=== PATIENT | male | born 1985 | race Caucasian/White ===

== ENCOUNTER 2019-10-17 17:44 | Emergency (ER) | payer BC ==
[2019-10-17 18:30] VITALS: BP 138/95; PULSE 90; RESP 18; TEMP 98.4
[2019-10-17] MEDS ORDERED: KETOROLAC 60 MG/2 ML VIAL IM STA (19:10)
[2019-10-17] MEDS ORDERED: DIAZEPAM 5 MG TAB PO STA (19:11)
--- NOTE | 2019-10-17 19:28 | ED ---
Back Pain HPI - General Chief Complaint: Back Pain/Injury Stated Complaint: Back pain Time Seen by Provider: 10/17/19 18:48 Source: patient Limitations: no limitations - History of Present Illness Initial Comments: Patient is a 34-year-old male presenting to emergency Department with complaints of low back pain 4 days. Patient states he was sitting cross leg is working on a vehicle for most of the day on Monday and then started having lower back pain. Patient states he does normally have low back pain intermittently but states this has not been getting better. Patient states today while he was standing he had an episode of pain shooting down both of his legs. He denies any saddle paresthesias, bowel or bladder incontinence. He denies fever, chills. He denies any previous fractures or surgery his low back. Patient is ambulatory. There are no other complaints at this time. Upon arrival to the ER, his vital signs are stable. - Related Data Previous Rx's Medication Instructions Recorded Cyclobenzaprine [Flexeril] 5 mg PO BID PRN #10 tablet 10/17/19 Allergies Allergy/AdvReac Type Severity Reaction Status Date / Time No Known Allergies Allergy Verified 10/17/19 18:25 Review of Systems ROS Statement: Those systems with pertinent positive or pertinent negative responses have been documented in the HPI. ROS Other: All systems not noted in ROS Statement are negative. Past Medical History Past Medical History: Asthma History of Any Multi-Drug Resistant Organisms: None Reported Past Surgical History: No Surgical Hx Reported Past Psychological History: No Psychological Hx Reported Smoking Status: Never smoker Past Alcohol Use History: None Reported Past Drug Use History: None Reported General Exam - General Exam Comments Initial Comments: GENERAL: Well-appearing, well-nourished and in no acute distress. Appears uncomfortable while standing. HEAD: Atraumatic, normocephalic. EYES: Pupils equal round and reactive to light, extraocular movements intact, sclera anicteric, conjunctiva are normal. ENT: TMs normal, nares patent, oropharynx clear without exudates. Moist mucous mem branes. NECK: Normal range of motion, supple without lymphadenopathy or JVD. LUNGS: Breath sounds clear to auscultation bilaterally and equal. No wheezes rales or rhonchi. HEART: Regular rate and rhythm without murmurs, rubs or gallops. ABDOMEN: Soft, nontender, normoactive bowel sounds. No guarding, no rebound. No masses appreciated. : Deferred EXTREMITIES: Patient is able to ambulate. Pain with palpation of lumbar paraspinals, bilaterally. Complete muscle spasms on the left greater than right. Patient has pain with trunk flexion. Normal trunk extension. Patient has equal and bilateral sensation of the lower extremities. He does have 5 out of 5 strength of lower extremities although pain with hip flexion. NEUROLOGICAL: Normal speech, normal gait. PSYCH: Normal mood, normal affect. SKIN: Warm, Dry, normal turgor, no rashes or lesions noted. Limitations: no limitations Course Vital Signs 10/17/19 18:26 Temperature 98.4 F Pulse Rate 90 Respiratory 18 Rate Blood Pressure 138/95 O2 Sat by Pulse 99 Oximetry Medical Decision Making - Medical Decision Making Patient is a 34-year-old male presenting with low back pain 4 days. No trauma or falls. This appears muscle skeletal in nature. Patient was given Toradol and Valium. X-rays of the lumbar spine reveal no acute abnormalities. I discussed with patient this is most likely muscle skeletal in nature. He reports just a very mild improvement in symptoms from the medications today. Patient will be sent home with muscle relaxer as well as a small dose of pain medicine. He will follow up with PCP if symptoms persist after one to 2 weeks. He is in agreement with this plan of care. Return parameters were discussed with the patient and he verbalized understanding. Disposition Clinical Impression: Strain of lumbar region Disposition: HOME SELF-CARE Condition: Stable Instructions (If sedation given, give patient instructions): Acute Low Back Pain (ED) Additional Instructions: Please return to the Emergency Department if symptoms worsen or any other concerns. Continue with muscle relaxant as discussed. Use heat to the area. Tylenol or ibuprofen for pain relief. Prescriptions: Cyclobenzaprine [Flexeril] 5 mg PO BID PRN #10 tablet PRN Reason: Muscle Spasm Is patient prescribed a controlled substance at d/c from ED?: No Referrals: Renetta Buckley MD [Primary Care Provider] - 1-2 days
--- NOTE | 2019-10-17 20:18 | XR ---
PROCEDURE: XR lumbar spine- 3V DATE AND TIME: 10/17/2019 7:30 PM CLINICAL INDICATION: PHH; pain TECHNIQUE: Department protocol COMPARISON: None FINDINGS: There is no fracture or malalignment. No focal skeletal findings. The AP view shows mild levocurvature, but this may be simply positional. The soft tissues are unremarkable. IMPRESSION: NO ACUTE PROCESS.
[2019-10-17] MEDS ORDERED: traMADol 50 MG STARTER PACK 3 TAB BTL PO STA (20:50)
== END 2019-10-17 21:04 | disposition home or self-care (01) ==
LOC: EC 17:44
DX: S39.012A Strain of muscle, fascia and tendon of lower back, initial encounter (principal); X58.XXXA Exposure to other specified factors, initial encounter
CPT/HCPCS: 72100; 99283; 96372; J1885